=== PATIENT | male | born 1990 ===

== ENCOUNTER 2017-08-28 02:53 | Emergency (ER) | payer SELFPAY ==
[~2017-08-28] VITALS: Ht 167.6 cm; Wt 78.5 kg
[2017-08-28 02:56] VITALS: Ht 167.6 cm; Wt 78.5 kg
--- NOTE | 2017-08-28 03:21 | ERD ---
ER Documentation Chief Complaint Chief Complaint panic attack HPI The patient is a 37-year-old male, presenting to the ER because of acute anxiety attack, he had similar symptoms previously, denies syncope, near syncope , neck pain, chest pain, abdominal pain, vomiting. He has a lot of stress in his life, denies suicidal or homicidal ideation, smoked marijuana and drinks socially Past medical history: Anxiety disorder, panic disorder, insomnia Past surgical history:None ROS All systems reviewed and are negative except as per history of present illness. Medications Home Meds Active Scripts Hydroxyzine Hcl* (Atarax*) 50 Mg Tab, 50 MG PO Q8H Y for ANXIETY, #10 TAB Prov:MURRAY PEOPLES MD 08/28/17 Allergies Allergies: Coded Allergies: No Known Allergy (Unverified , 08/28/17) Physical Exam Vitals Vital Signs Date Time Temp Pulse Resp B/P Pulse Ox O2 Delivery O2 Flow Rate FiO2 08/28/17 06:00 96 120/77 100 Room Air 08/28/17 04:00 94 121/74 100 Room Air 08/28/17 02:56 97.8 133 20 149/83 99 Physical Exam Const: No acute distress.Very anxious Head: Atraumatic. Eyes: Normal Conjunctiva. ENT: Normal External Ears, Nose and Mouth. Neck: Full range of motion. No meningismus. Resp: Clear to auscultation bilaterally. Cardio: Regular Tachycardic Abd: Soft, non distended, normal bowel sounds, non tender. Skin: No petechiae or rashes. Back: No midline or flank tenderness. Ext: No cyanosis, or edema. Neur: Awake and alert. No focal deficit Psych: Very anxious. Result Diagram: 08/28/17 0345 08/28/17 0345 Results 24 hrs Laboratory Tests Test 08/28/17 03:45 White Blood Count 11.410^3/ul Red Blood Count 5.2110^6/ul Hemoglobin 15.3g/dl Hematocrit 44.0% Mean Corpuscular Volume 84.5fl Mean Corpuscular Hemoglobin 29.4pg Mean Corpuscular Hemoglobin Concent 34.8g/dl Red Cell Distribution Width 12.1% Platelet Count 42730^3/UL Mean Platelet Volume 11.1fl Neutrophils % 68.1% Lymphocytes % 23.8% Monocytes % 6.4% Eosinophils % 0.9% Basophils % 0.5% Nucleated Red Blood Cells % 0.0/100WBC Neutrophils # 7.710^3/ul Lymphocytes # 2.710^3/ul Monocytes # 0.710^3/ul Eosinophils # 0.110^3/ul Basophils # 0.110^3/ul Nucleated Red Blood Cells # 0.010^3/ul Sodium Level 144mmol/L Potassium Level 3.1mmol/L Chloride Level 103mmol/L Carbon Dioxide Level 24mmol/L Anion Gap 20 Blood Urea Nitrogen 19mg/dl Creatinine 1.07mg/dl Glucose Level 109mg/dl Calcium Level 10.4mg/dl Thyroid Stimulating Hormone (TSH) 1.220MIU/L Ethyl Alcohol Level < 10.0mg/dl Current Medications Medications (Trade) Dose Ordered Sig/Michael Route PRN Reason Start Time Stop Time Status Last Admin Dose Admin Sodium Chloride (NS) 2,430 ml @ 2,430 mls/hr BOLUS X1 ONCE IV 08/28/17 03:30 08/28/17 04:29 DC 08/28/17 03:58 Lorazepam (Ativan) 1 mg ONCE ONCE PO 08/28/17 05:00 08/28/17 05:01 DC 08/28/17 05:27 Potassium Chloride (Klor-Con 20) 40 meq ONCE ONCE PO 08/28/17 05:48 08/28/17 05:49 DC 08/28/17 06:06 Procedures/MDM EKG: Read by emergency physician Rate/Rhythm: Normal Sinus Rhythm 100beats/min QRS, ST, T-waves: No ST elevation, no T inversion Impression: Normal EKG MEDICAL MAKING DECISION: The patient is a 37-year-old female, presenting to the ER because of acute anxiety, acute hypokalemia, acute dehydration. He was treated with Ativan 1 mg p.o. for acute anxiety, normosaline 30 mL M IV for acute dehydration and potassium chloride 40 mg p.o. for acute hypokalemia with good response. The differential diagnoses considered include but are not limited to acute anxiety attack, acute panic attack, hyperventilation syndrome Departure Diagnosis: Primary Impression: Anxiety attack Additional Impressions: Hypokalemia Insomnia Condition: Good Comments He was discharged with Atarax The patient's blood pressure was elevated (>120/80) but appears stable without evidence of hypertension emergency or urgency. The patient was counseled about the risks of hypertension and urged to pursue outpatient monitoring and therapy within a week with their primary care physician. I discussed the findings with the patient. I advised the patient to follow-up with the primary physician in about 1-2 days, sooner if needed and return if any concern. MURRAY PEOPLES MD Aug 28, 2017 03:21
[2017-08-28] MEDS ORDERED: SOD CHLORIDE 0.9% 2,430 ML IV ONE (03:30)
[2017-08-28 04:32] LABS: BASOPHIL # 0.1 10^3/ul (0.0-0.1); BASOPHILS % 0.5 % (0.0-2.0); EOSINOPHILS # 0.1 10^3/ul (0.0-0.5); EOSINOPHILS % 0.9 % (0.0-7.0); HEMOGLOBIN 15.3 g/dl (14.0-18.0); LYMPHOCYTES # 2.7 10^3/ul (0.8-2.9); LYMPHOCYTES % 23.8 % (15.0-51.0); MEAN CORPUSCULAR HEMOGLOBIN 29.4 pg (29.0-33.0); MEAN CORPUSCULAR HGB CONC 34.8 g/dl (32.0-37.0); MEAN CORPUSCULAR VOLUME 84.5 fl (82.0-101.0); MEAN PLATELET VOLUME 11.1 fl (7.4-10.4); MONOCYTE # 0.7 10^3/ul (0.3-0.9); MONOCYTES % 6.4 % (0.0-11.0); NEUTROPHIL # 7.7 10^3/ul (1.6-7.5); NEUTROPHILS % 68.1 % (39.0-77.0); PLATELET COUNT 240 10^3/UL (140-415); RED BLOOD COUNT 5.21 10^6/ul (4.70-6.10); RED CELL DISTRIBUTION WIDTH 12.1 % (11.5-14.5); WHITE BLOOD COUNT 11.4 10^3/ul (4.8-10.8)
[2017-08-28 04:57] LABS: ANION GAP 20 (8-16); BLOOD UREA NITROGEN 19 mg/dl (7-20); CALCIUM 10.4 mg/dl (8.4-10.2); CARBON DIOXIDE 24 mmol/L (21-31); CHLORIDE 103 mmol/L (97-110); CREATININE 1.07 mg/dl (0.61-1.24); GLUCOSE 109 mg/dl (70-220); POTASSIUM 3.1 mmol/L (3.5-5.1); SODIUM 144 mmol/L (135-144)
[2017-08-28] MEDS ORDERED: LORAZEPAM 1 MG TAB PO ONE (05:00)
[2017-08-28 05:10] LABS: ETHANOL < 10.0 mg/dl
--- NOTE | 2017-08-28 05:12 | RADRPT ---
PROCEDURE: CHEST - 1 VIEW CLINICAL INDICATION: 27-year-old male with shortness of breath. TECHNIQUE: A single frontal AP portable view of the chest was performed. The images were reviewed on a PACS workstation. COMPARISON: None. FINDINGS: The cardiomediastinal silhouette has a normal appearance. There is a shallow inspiration. There is n o evidence for an infiltrate. The pulmonary vascularity is within normal limits. There is no eviden ce for pneumothorax or pneumomediastinum. The osseous structures are intact. IMPRESSION: No evidence for active cardiopulmonary disease. .Gulshan Durbin MD, MD Date Time Electronically viewed and signed by .Gulshan Durbin MD, on 08/28/2017 05:11 .Manjula/
[2017-08-28] MEDS ORDERED: HYDR-845 PO (05:43)
[2017-08-28] MEDS ORDERED: POTASSIUM CHLORIDE (SR) 20 MEQ TAB PO ONE (05:48)
[2017-08-28 06:00] VITALS: BP 120/77; PULSE 96
[2017-08-28 07:25] LABS: BARBITURATES NEGATIVE (NEGATIVE); BENZODIAZEPINES NEGATIVE (NEGATIVE); CANNABINOIDS NEGATIVE (NEGATIVE); COCAINE NEGATIVE (NEGATIVE); OPIATES NEGATIVE (NEGATIVE)
== END 2017-08-28 06:12 | disposition home or self-care (01) ==
LOC: E/R 02:53
DX: F41.9 Anxiety disorder, unspecified (principal); E87.6 Hypokalemia; G47.00 Insomnia, unspecified; R06.02 Shortness of breath
CPT/HCPCS: 36415; 71010; 80048; 80306; 80307; 84443; 85025; 93005; 99285; J7030